=== PATIENT | male | born 1995 | race Native Hawaiian/Other Pacific Islander ===

== ENCOUNTER 2019-07-02 15:49 | Emergency (ER) | payer BC ==
[~2019-07-02] VITALS: Ht 180.3 cm; Wt 91.3 kg
[2019-07-02 16:05] VITALS: TEMP 98.8
[2019-07-02 16:59] VITALS: BP 139/88
== END 2019-07-02 16:59 | disposition home or self-care (01) ==
LOC: ED 15:49
DX: J06.9 Acute upper respiratory infection, unspecified (principal); R50.9 Fever, unspecified
CPT/HCPCS: 87502; 87651; 99283

== ENCOUNTER 2021-02-11 09:27 | Outpatient (CLI) | payer BC | END 2021-02-11 20:33 | disposition home or self-care (01) | LOC: RAD 09:27 | PROVIDERS: ATTEND Nurse Practitioner | DX: R07.89 Other chest pain (principal) ==